=== PATIENT | male | born 1980 | race Two or more races ===

== ENCOUNTER 2019-07-09 20:22 | Emergency (ER) | payer MEDICAID ==
[~2019-07-09] VITALS: Ht 170.2 cm; Wt 104.3 kg
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
[2019-07-09] MEDS ORDERED: Tylenol #3 tab (300mg/30mg) ORAL ONE (21:00)
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
[2019-07-09] MEDS ORDERED: Tetanus/Diptheria/Pertussis IM ONE (21:30)
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
[2019-07-09 22:00] VITALS: BP 128/76
[2019-07-09] MEDS ORDERED: IBUPROFEN600 MG ORAL (22:08)
[2019-07-09] MEDS ORDERED: HYDROmorphone 1mg/ml Carpuject IM ONE (22:15)
[2019-07-09] MEDS ORDERED: Bacitracin Oint UD TOPIC ONE ×2 (22:17→22:30)
[2019-07-09] MEDS ORDERED: HYDROCODON-ACE1 EA15 ORAL (22:21)
[2019-07-09] MEDS ORDERED: Neosporin Oint Ud Pkt TOPIC ONE (22:30)
--- NOTE | 2019-07-09 22:40 | NUR ---
ER DISCHARGE NOTE: Patient is cleared to be discharged per ERMD, pt is aox4, on room air, with stable vital signs. pt was given dc and prescription instructions, pt was able to verbalize understanding, pt id band removed without complications. pt is able to ambulate with steady gait. pt took all belongings.
[2019-07-09] MEDS ORDERED: ACETAMINOPHEN500 M3 ORAL (22:42)
[2019-07-09 22:45] VITALS: BP 128/76
== END 2019-07-09 22:45 | disposition home or self-care (01) ==
LOC: EDBD 20:22 → EMR 20:50
DX: S01.81XA Laceration without foreign body of other part of head, initial encounter (principal); S01.511A Laceration without foreign body of lip, initial encounter; S05.12XA Contusion of eyeball and orbital tissues, left eye, initial encounter; Z23 Encounter for immunization; Y04.2XXA Assault by strike against or bumped into by another person, initial encounter; Y92.9 Unspecified place or not applicable
CPT/HCPCS: 12011; 12052; 70450; 70486; 90471; 90715; 96372; J1170; Z7502; 80053; 99284